=== PATIENT | male | born 1995 | race Caucasian/White ===

== ENCOUNTER → 2017-08-21 | Outpatient (REF) | payer OTHER | LOC: M LAB REF 13:52 | PROVIDERS: ATTEND Specialist | DX: R59.0 Localized enlarged lymph nodes (principal) ==

== ENCOUNTER → 2017-08-21 | Outpatient (CLI) | payer OTHER ==
[2017-08-21 11:36] LABS: BASO # 0.1 10^3/uL (0.0-0.2); BASO % 1.5 % (0.0-1.0); EOS # 0.2 10^3/uL (0.0-0.50); EOS % 2.7 % (0.0-3.0); IMMATURE GRANULOCYTE % 1.3 % (0-0); LYMPH # 1.4 10^3/uL (1.5-6.5); LYMPH % 20.1 % (24.0-44.0); MEAN CORPUSCULAR HEMOGLOBIN 29.3 pg (27.0-33.0); MEAN CORPUSCULAR HGB CONC 32.4 g/dl (32.0-36.5); MEAN CORPUSCULAR VOLUME 90.4 fl (80.0-96.0); MONO # 0.9 10^3/uL (0.0-0.8); MONO % 13.3 % (0.0-5.0); NEUTROPHILS # 4.1 10^3/uL (1.8-7.7); NEUTROPHILS % 61.1 % (36.0-66.0); PLATELET COUNT, AUTOMATED 319 10^3/uL (150-450); WHITE BLOOD COUNT 6.7 10^3/uL (4.0-10.0)
--- NOTE | 2017-08-21 12:06 | REP ---
Chest two views HISTORY: Lymphadenopathy Comparison: None The lungs are clear. The heart is normal in size. The pulmonary vasculature is normal in appearance. The bony structure is intact. IMPRESSION: No acute disease. Signed by Homar Hercules MD 08/21/2017 11:57 A
== END ==
LOC: M LAB 10:53
PROVIDERS: ATTEND Specialist
DX: R59.0 Localized enlarged lymph nodes (principal)

== ENCOUNTER 2017-09-01 06:44 | Day surgery (SDC) | payer OTHER ==
[~2017-09-01] VITALS: Ht 180.3 cm; Wt 87.5 kg
[2017-09-01] MEDS ORDERED: LR 1,000 ML IV SCH ×2 (07:00→11:00)
[2017-09-01] MEDS ORDERED: POLYSPORIN OPHTH OINT 3.5 GM As Ordered ONE (08:27)
[2017-09-01] MEDS ORDERED: LIDOCAINE W/EPINEPHRINE 1% 20ML VIAL As Ordered ONE (08:27)
[2017-09-01] MEDS ORDERED: fentaNYL 100 MCG/2 ML INJECTION (J3010) As Ordered ONE (08:34)
[2017-09-01] MEDS ORDERED: PROPOFOL 200 MG/20 ML VIAL As Ordered ONE ×2 (08:34→09:10)
[2017-09-01] MEDS ORDERED: ROCURONIUM BROMIDE 50 MG/5 ML VIAL/SYRINGE As Ordered ONE (08:34)
[2017-09-01] MEDS ORDERED: dexameTHASONE 4 MG/ML 1ML VIAL (J1100) As Ordered ONE (08:34)
[2017-09-01] MEDS ORDERED: LIDOCAINE 2% INJ 100 MG/5 ML SDV (FOR ANES.) As Ordered ONE (08:34)
[2017-09-01] MEDS ORDERED: MIDAZOLAM INJ 2 MG/2 ML VIAL (J2250) As Ordered ONE (08:35)
[2017-09-01] MEDS ORDERED: NEOSTIGMINE 10 MG/10 ML VIAL (J2710) As Ordered ONE (09:18)
[2017-09-01] MEDS ORDERED: GLYCOPYRROLATE INJ 0.2 MG/ML 2 ML VIAL As Ordered ONE (09:18)
[2017-09-01] MEDS ORDERED: KETOROLAC 60 MG/2 ML VIAL (J1885) As Ordered ONE (09:18)
[2017-09-01] MEDS ORDERED: ONDANSETRON 4MG/2ML VIAL (J2405) As Ordered ONE (09:18)
[2017-09-01 10:45] VITALS: BP 142/85
[2017-09-01] MEDS ORDERED: PERCOCET 5MG/325MG TAB PO PRN ×2 (11:00)
[2017-09-01] MEDS ORDERED: HYDROmorphone HCL 1 MG/ML SYRINGE (J1170) IV PRN (11:00)
[2017-09-01] MEDS ORDERED: fentaNYL 100 MCG/2 ML INJECTION (J3010) IV PRN (11:00)
[2017-09-01] MEDS ORDERED: ONDANSETRON 4MG/2ML VIAL (J2405) IV PRN (11:00)
--- NOTE | 2017-09-03 07:42 | RO ---
DATE OF PROCEDURE: 09/01/2017 PREPROCEDURE DIAGNOSIS: Incisional biopsy of deep cervical lymph node. POSTPROCEDURE DIAGNOSIS: PROCEDURE: SURGEON: Dr. Ryan Lee. MACHINE STOPPAGE FREQUENCY CHECKER: ANESTHESIA: General. INDICATION: This is a 22-year-old who presents asymptomatically with a large lymph node mass in the right inferior jugular chain, supraclavicular fossa. DESCRIPTION OF PROCEDURE: After satisfactory general endotracheal anesthesia was administered, the patient was placed in the usual position for head and neck surgery. A horizontal incision was made in an actual skin crease over the neck mass in the inferior portion of the lateral neck. The platysma muscle was divided sharply. The subcutaneous fat was then between the sternal and clavicular heads of the sternomastoid muscle. The lymph node mass was immediately apparent. It was quite vascular. Small vessels crossing across the lymph node mass were clamped, cut, and ligated or cauterized with a bipolar cautery. The capsule of the lymph node mass was identified. It was incised with a knife and immediately, the lymph node was quite soft and was removed piecemeal through the incision through the capsule. IT had a consistency of oatmeal more than a sold mass. A large amount of specimen was taken. Bleeding was controlled by using bipolar cautery to cauterize areas of the internal portion of the lymph node after the biopsy was removed. A piece of Surgicel was placed into the defect crater in the lymph node mass. Then the incision was closed by closing the deep layers of fascia with an interrupted #3-0 Vicryl suture, platysma muscle was then closed using interrupted #3-0 Vicryl suture and the skin was then closed using a #4-0 subcuticular suture. Steri-Strips were applied. He tolerated the procedure well and sent to the recovery room in satisfactory condition. He will be seen back in the office in a few days to discuss the results of the biopsy.
== END 2017-09-01 11:06 | disposition home or self-care (01) ==
LOC: M SDC 06:44
PROVIDERS: ATTEND Specialist
DX: C81.21 Mixed cellularity Hodgkin lymphoma, lymph nodes of head, face, and neck (principal); K21.9 Gastro-esophageal reflux disease without esophagitis
CPT/HCPCS: 38510; 88305; J1100; J1885; J2250; J2405; J2710; J3010

== ENCOUNTER → 2017-09-22 | Outpatient (CLI) | payer OTHER ==
--- NOTE | 2017-09-23 13:56 | REP ---
PET/CT: History: Staging for Hodgkin's lymphoma. Status post incisional biopsy right neck lymph node September 01, 2017. Comparisons: Comparison chest x-ray August 21, 2017 TECHNIQUE: 52 minutes following the intravenous injection of a 6.6 mCi dose of F-18 FDG, three-dimensional PET scintigraphy is acquired from the skull base to the proximal thighs. Triplanar noncontrast CT scanning is acquired through the same anatomic range for attenuation correction, and image registration with scan parameters optimized to minimize radiation exposure to the patient. PET scintigraphy and CT datasets were fused and displayed on a workstation with multiplanar and projection display capability. PET/CT Findings: The patient's known large right neck mass is hypermetabolic. Maximum standard uptake value in this heterogeneous tomas mass is 26.2. Hypermetabolic tomas neck mass measures 11.1 cm craniocaudal by 8.5 cm medial to lateral by 6.5 cm anteroposterior . This extends into the subclavicular space caudally and up to the angle of the mandible cranially. No other abnormal head and neck hypermetabolic uptake is seen. The trachea is deviated to the left by this large process. No abnormal thoracic hypermetabolic uptake is seen. No abdominal or pelvic hypermetabolic abnormality is noted. No other abnormality. Impression: Large heterogeneous hypermetabolic tomas mass in the right neck as above. Signed by Jimmie Reynolds MD 09/23/2017 01:47 P
== END ==
LOC: M PLARAD 08:15
PROVIDERS: ATTEND Internal Medicine Medical Oncology
DX: C85.80 Other specified types of non-Hodgkin lymphoma, unspecified site (principal)
CPT/HCPCS: 78815; A9552

== ENCOUNTER → 2017-09-24 | Outpatient (CLI) | payer OTHER ==
--- NOTE | 2017-09-24 21:56 | ECHO ---
DATE OF PROCEDURE: 09/24/2017 DATE OF : 1995 AGE: 22 GENDER: Male HEIGHT: 71 inches WEIGHT: 192 pounds BODY SURFACE AREA: 2.07 meters squared Outpatient. REFERRING PHYSICIAN: Flash INDICATION: Lymphoma - potentially cardiotoxic chemotherapy. MEASUREMENTS: 2D measurements: RV: 3.6 cm LV: 4.7 cm Septum: 0.9 cm Posterior wall: 0.9 cm Aortic root: 3.4 cm LA: 3.1 cm LVEF: 65%. Doppler Measurements: AV: 1.3 meters per second LVOT: 1.0 meters per second LVOT diameter: 2.5 cm MV-E: 92, A: 45, EA ratio: 2 Early mitral deceleration time: 169 milliseconds E prime: 11.8, A prime: 8, E/E prime ratio: 7.8 PV: 1.1 meters per second Pulmonary artery acceleration time: 134 milliseconds PASP: 19 mmHg IVC: 1.4 cm COMMENTS: Normal sinus rhythm/sinus tachycardia without intraventricular conduction disturbance. Normal cardiac chamber sizes and wall thickness. On real-time imaging from the parasternal and apical projections, wall motion was symmetrical and hyperkinetic. Normal appearing mitral valvular apparatus and leaflet excursion with no posterior systolic buckling. Three equal size aortic cusps of normal thickness and cusp separation. Normal aortic root size. No pericardial effusion or intracardiac mass. Color flow Doppler study taken from the parasternal and apical projection showed trace tricuspid but no mitral or aortic insufficiency. Guided continuous wave Doppler of his aortic valve showed a normal peak systolic velocity against LV outflow tract obstruction. Pulsed and continuous wave Doppler of his LV inflow tract taken from the apical four-chamber projection showed normal diastolic filling velocities against mitral stenosis. The filling pattern was also normal against LV diastolic dysfunction. Pulsed and continuous wave Doppler of his pulmonary trunk showed a normal peak systolic velocity against RV outflow tract obstruction. His pulmonary artery acceleration time was normal against an elevated pulmonary vascular resistance. Guided continuous wave Doppler of his tricuspid valve was used to further attempt to define right ventricular systolic pressure but we could not get a clear spectral envelope. His inferior vena cava was normal size with normal respiratory collapse against an elevated central venous pressure. CONCLUSIONS: Normal appearing echocardiogram/Doppler study.
== END ==
LOC: M CARPUL 10:16
PROVIDERS: ATTEND Internal Medicine Medical Oncology
DX: C81.90 Hodgkin lymphoma, unspecified, unspecified site (principal)

== ENCOUNTER → 2017-10-15 | Outpatient (CLI) | payer OTHER ==
[~2017-10-15] MED LIST: LIDOCAINE 2% MDV 20 ML VIAL As Ordered ONE; ONDANSETRON 4 MG ORAL DISINTEGRATING TAB (S0181) As Ordered ONE; ceFAZolin 1GM INJ (J0690 PER 500MG) As Ordered ONE
--- NOTE | 2017-10-28 12:50 | REPIR ---
DATE OF PROCEDURE: 10/15/2017 PREPROCEDURE DIAGNOSIS: Lymphoma requiring access for chemotherapy. POSTPROCEDURE DIAGNOSIS: Lymphoma requiring access for chemotherapy. PROCEDURE: Ultrasound with fluoroscopic guided left internal jugular vein Port-a-Cath placement with a 22.5 cm catheter length. SURGEON: Dr. Chiid Romeo. ROUNDHOUSE FIRER/FIREMAN: José Miguel Blanc. ANESTHESIA: Local with 30 mL of 2% lidocaine. ESTIMATED BLOOD LOSS: FLUORO TIME: 2.222 minutes. CONTRAST: None. COMPLICATIONS: None. DRAINS: None. SPECIMENS: None. IMPLANTS: Left internal jugular vein 22.5 mm Port-a-Cath. INDICATION: The patient is a 22-year-old male with lymphoma who requires access for chemotherapy and will undergo a left internal jugular vein, possible right internal jugular vein Port-a-Cath placement. Risks, benefits and alternative treatment options were discussed with the patient. PROCEDURE: The patient was taken to the angiography suite and placed supine on the angiography room table and then prepped and draped in a standard surgical fashion. The ultrasound was used to evaluate the left internal jugular vein which was noted to be easily compessible, widely patent and free of thrombus. Ultrasound was used to guide cannulation of the left internal jugular vein with real-time concurrent visualization of entry of the needle into the left internal jugular vein. The micropuncture wire was advanced through the micropuncture needle which was upsized to a micropuncture sheath. It should be noted that a hard copy image of the ultrasound guided cannulation was preserved. The left internal jugular vein was then sequentially dilated under fluoroscopic guidance and an introducer sheath positioned. A catheter was tunneled from the pocket created in the left chest to the puncture wound in the left neck and advanced through the introducer sheath and positioned under fluoroscopic guidance with the tip in the superior vena cava/right atrial junction. Catheter was then cut to length and connected to the port which was placed in the pocket. The port was access and aspirated and noted to aspirate easily and then flushed with heparinized saline. Incisions were closed using #2-0 Vicryl to approximate the skin and the chest wound and #3-0 Monocryl to approximate the puncture wound in the left neck. Steri-Strips and dressings were applied. Patient tolerated the procedure well. All instrument, sponge and needle counts were correct at the end of the case. There were no complications. Dr. Romeo was present for and directed the entire case. Patient was transferred to the holding area and subsequently discharged in stable condition. The Port-a-Cath is stable for use for chemotherapy access. RADIOLOGICAL SUPERVISION INTERPRETATION: The ultrasound showed the left internal jugular vein to be easily compressible, widely patent and free of thrombus and ultrasound was used to guide cannulation with a hard copy image preserved of the real-time concurrent visualization of the entry of the needle into the left internal jugular vein. Fluoroscopic guidance was used to dilate the internal jugular vein and place a catheter with the tip in the superior vena cava/right atrial junction. Final fluoroscopic images the catheter to be in good position and good alignment with the tip in the superior vena/right atrial junction with no pneumo- or hemothorax noted.
== END | disposition home or self-care (01) ==
LOC: M IRPRO 11:54
PROVIDERS: ATTEND Internal Medicine Medical Oncology
DX: C85.90 Non-Hodgkin lymphoma, unspecified, unspecified site (principal)
CPT/HCPCS: 36561; 76937; 77001; C1769; C1788; C1894; J0690

== ENCOUNTER → 2017-12-01 | Outpatient (CLI) | payer OTHER | LOC: M PLARAD 15:21 | DX: C81.90 Hodgkin lymphoma, unspecified, unspecified site (principal) | CPT/HCPCS: 78815 ==

== ENCOUNTER → 2018-01-28 | Outpatient (CLI) | payer OTHER | LOC: M ONCR 14:12 | DX: C81.21 Mixed cellularity Hodgkin lymphoma, lymph nodes of head, face, and neck (principal) | CPT/HCPCS: G0463 ==

== ENCOUNTER → 2018-04-21 | Outpatient (CLI) | payer OTHER | LOC: M PLARAD 14:25 | DX: C81.90 Hodgkin lymphoma, unspecified, unspecified site (principal) | CPT/HCPCS: 78815 ==

== ENCOUNTER → 2018-04-26 | Outpatient (CLI) | payer OTHER | LOC: M CARPUL 05-31 09:30 | DX: C81.90 Hodgkin lymphoma, unspecified, unspecified site (principal) | CPT/HCPCS: 94010 ==

== ENCOUNTER → 2018-04-26 | Outpatient (CLI) | payer OTHER | LOC: M CARPUL 09:43 | DX: C81.90 Hodgkin lymphoma, unspecified, unspecified site (principal) ==

== ENCOUNTER → 2018-09-03 | Outpatient (CLI) | payer OTHER | LOC: M CARPUL 11:17 | DX: C81.90 Hodgkin lymphoma, unspecified, unspecified site (principal) | CPT/HCPCS: 93306 ==

== ENCOUNTER → 2018-10-18 | Outpatient (CLI) | payer OTHER ==
[2018-10-18 11:49] LABS: INR 0.95; PROTHROMBIN TIME 12.8 SECONDS (12.1-14.4)
[2018-10-18 12:30] LABS: ALBUMIN 4.1 GM/DL (3.2-5.2); ALBUMIN/GLOBULIN RATIO 1.11 (1.00-1.93); ALKALINE PHOSPHATASE 174 U/L (45-117); ALT/SGPT 132 U/L (12-78); AST/SGOT 56 U/L (7-37); BILIRUBIN,DIRECT 0.1 MG/DL (0.0-0.2); BILIRUBIN,TOTAL 0.5 MG/DL (0.2-1.0); GAMMA GLUTAMYLTRANSPEPTIDASE 757 U/L (15-85); HEPATITIS B SURFACE ANTIGEN NEGATIVE (NEGATIVE); IRON (FE) 112 UG/DL (65-175); PERCENT SATURATION 35.1 % (19.7-50.0); TOTAL IRON BINDING CAPACITY 319 UG/DL (250-450); TOTAL PROTEIN 7.8 GM/DL (6.4-8.2)
[2018-10-18 12:52] LABS: HEPATITIS C VIRUS ABY INDEX 0.1 INDEX (<0.8)
[2018-10-18 12:52] LABS: HEPATITIS B CORE ANTIBODY IGM NEGATIVE (NEGATIVE)
[2018-10-18 12:54] LABS: HEPATITIS A ANTIBODY IGM NEGATIVE (NEGATIVE)
[2018-10-19 14:13] LABS: CERULOPLASMIN 23.1 mg/dL (16.0-31.0)
[2018-10-20 00:06] LABS: LIVER-KIDNEY MICROSOMAL ABY 1.3 Units (0.0-20.0)
[2018-10-21 00:07] LABS: ANCA-ATYPICAL <1:20 titer (Neg:<1:20); ANTI-MITOCHONDRIAL ANTIBODY 2.2 Units (0.0-20.0); ANTINUCLEAR ANTIBODIES DIRECT Negative (Negative); CYTOPLASMIC NEUTROP AB ANCA-C <1:20 titer (Neg:<1:20); PERINUCLEAR AB ANCA-P <1:20 titer (Neg:<1:20)
== END ==
LOC: M LAB 10:55
DX: R74.8 Abnormal levels of other serum enzymes (principal); R94.5 Abnormal results of liver function studies
CPT/HCPCS: 82977

== ENCOUNTER → 2020-06-07 | Outpatient (CLI) | payer OTHER ==
[~2020-06-07] MED LIST changes: +LIDOCAINE 1% MDV 20ML VIAL ONE; -LIDOCAINE 2% MDV 20 ML VIAL As Ordered ONE; +MIDAZOLAM INJ 2MG/2ML VIAL (J2250 PER 1MG) ONE; -ONDANSETRON 4 MG ORAL DISINTEGRATING TAB (S0181) As Ordered ONE; -ceFAZolin 1GM INJ (J0690 PER 500MG) As Ordered ONE; +ceFAZolin 1GM VIAL (J0690 PER 500MG) ONE; +diphenhydrAMINE 50MG/ML VIAL (J1200) ONE; +fentaNYL 100 MCG/2 ML INJECTION (J3010) ONE
--- NOTE | 2020-07-13 10:23 | POST-OPPD ---
Postoperative Procedure Note Date Of Procedure: Jun 07, 2020 Time Of Procedure: 11:00 Full operative note. Port Removal / Explant Clinical Information:Lymphoma. Completed therapy. Presents for port removal. Physician: Dr. Rene Procedure: The patient was advised of the benefits, risks, and alternatives of the procedure and informed consent was obtained. A time out was performed with verification of the patient's name, MRN, site of procedure, and type of procedure to be performed. The patient was positioned in the supine position on the angiographic table. The site was prepped and draped in the usual sterile fashion. Moderate sedation was performed by the physician including the presence of an independent trained observer that assisted in monitoring the patient's level of consciousness and physiological status. Following the administration of fentanyl and Versed the physician spent time 30 minutes of continuous [id number] time with the patient. A partner radiograph reveals a left-sided port in place. The soft tissues overlying the port were anesthetized with lidocaine. An incision was made over the port using a 15 blade scalpel in the location of the prior incision. The catheter was then freed with blunt dissection and extracted. Pressure was applied to obtain hemostasis. The port was then freed with blunt dissection and subsequently removed. There were no signs of infection. After hemostasis was achieved, the incision was closed with interrupted deep 3-0 Vicryl sutures and Monocryl, Steri-Strips and glue. The site was cleansed and covered with a sterile dressing. The patient tolerated the procedure well and was returned to the PRU in stable condition. EBL:Less than 5 mL Complications:None Conclusions: 1. Successful explant of a left-sided port. 2. No signs of infection. Thank you for this referral YOSHI RENE MD Jul 13, 2020 10:23
== END ==
LOC: M RAD 14:00 → M IRPRO 14:00
PROVIDERS: ATTEND Internal Medicine Hematology & Oncology
DX: C81.90 Hodgkin lymphoma, unspecified, unspecified site (principal)
CPT/HCPCS: 99152; 99153; J0690; J1200; J1644; J2250; J3010